=== PATIENT | female | born 1930 | race Hispanic/Latino ===

== ENCOUNTER 2018-06-09 14:14 | Outpatient (CLI) | payer MEDICARE ==
--- NOTE | 2018-06-09 15:37 | Mammography Report ---
BILATERAL MAMMOGRAM: FINDINGS: There are scattered fibroglandular densities (approximately 25%-50% glandular). No mass, distortion, suspicious calcification, or skin change is seen. CAD was utilized. IMPRESSION: Negative mammogram. There is no mammographic evidence of malignancy. RECOMMENDATION: Follow-up per ACS guidelines. BI-RADS CATEGORY: 1 = Negative ACR BI-RADS MAMMOGRAPHIC CODES: 0 = Needs additional imaging evaluation; 1 = Negative; 2 = Benign; 3 = Probably benign; 4 = Suspicious; 5 = Malignant; 6 = Known biopsy-proven malignancy COMMENT: 1. Dense breast tissue, i.e., adenosis, fibrocystic changes, etc., may obscure an underlying neoplasm. 2. Approximately 10% of cancers are not detected with mammography. 3. A negative mammography report should not delay biopsy if a clinically suspicious mass is present. COMMENT: Patient follow-up letters are generated in [employer].
--- NOTE | 2018-06-10 08:04 | Mammography Report ---
BONE DEXA:06/09/18 14:14:00 CLINICAL: Postmenopausal. No comparison. TECHNIQUE: Two site bone DEXA performed on an Hologic scanner. FINDINGS: The average BMD of the lumbar spine L1-L4 is 0.820g/cm squared with a T-score of -2.1. The average BMD of the left hip is 0.807g/cm squared with a T-score of -1.1. Note: A Z-score was not calculated because of age >80 years. IMPRESSION: WHO classification: Osteopenia with increased fracture risk based on the spine and left hip measurements. RECOMMENDATION: Clinical correlation and routine screening. DEFINITIONS: BMD = Bone Mineral Density T-score = BMD related to mean peak bone mass of young adult (mean expressed in Standard Deviation) Z-score = Age matched BMD expressed in SD World Health Organization (WHO) Diagnostic Criteria Normal T-score > -1 SD Osteopenia T-score between -1 and -2.4 SD Osteoporosis T-score -2.5 SD or below NOTE: BMD is not the only risk factor for fracture. One should also consider factors such as the patient's age, risk of falling, previous osteoporotic fracture, family history of osteoporotic fractures, current smoker, and low body weight. Z-scores are not calculated if >80 years of age.
== END 2018-06-09 14:15 | disposition home or self-care (01) ==
LOC: SPVWC 14:14
PROVIDERS: ATTEND Internal Medicine
DX: Z12.31 Encounter for screening mammogram for malignant neoplasm of breast (principal); Z78.0 Asymptomatic menopausal state; M85.88 Other specified disorders of bone density and structure, other site; Z88.1 Allergy status to other antibiotic agents; I10 Essential (primary) hypertension; I73.9 Peripheral vascular disease, unspecified; Z90.710 Acquired absence of both cervix and uterus
CPT/HCPCS: 77067; 77080

== ENCOUNTER 2020-07-05 12:56 | Outpatient (CLI) | payer MEDICARE ==
--- NOTE | 2020-07-05 14:56 | XRay Report ---
RIGHT RIBS 3 VIEWS HISTORY: Closed fracture of multiple ribs of right side COMPARISON: None. IMPRESSION: Subtle nondisplaced right posterior lateral rib fractures are identified at levels 7-9. T he remaining right ribs are grossly intact. The right lung is well-aerated. No pneumothorax. Signer Name: Les Olvera Jr, MD Signed: 07/05/2020 2:51 PM Workstation Name: [id number]
== END 2020-07-05 12:57 | disposition home or self-care (01) ==
LOC: SPVIMAG 12:56
PROVIDERS: ATTEND Internal Medicine
DX: S22.41XD Multiple fractures of ribs, right side, subsequent encounter for fracture with routine healing (principal); X58.XXXD Exposure to other specified factors, subsequent encounter